=== PATIENT | female | born 2000 | race Caucasian/White ===

== ENCOUNTER → 2022-09-02 | Outpatient (CLI) | payer OTHER, SELFPAY ==
[2022-09-02 16:27] LABS: Absolute Lymphocyte Count 2.34 X10^3/uL (0.83-4.51); Absolute Neutrophil Count 10.2 X10^3/uL (2.0-7.7); Basophil# 0.03 X10^3/uL; Basophil% 0.2 % (0-1); Eosinophil# 0.17 X10^3/uL; Eosinophils% 1.3 % (0-5); Hematocrit 34.1 % (37-47); Hemoglobin 11.7 g/dL (12.0-15.0); Lymphocyte # 2.34 X10^3/ul (0.83-4.51); Lymphocyte % 17.5 % (19-41); Mean Corp Hgb Conc 34.3 g/dL (32-36); Mean Corpuscular Hgb 29.3 pg (27.0-32.0); Mean Corpuscular Volume 85.5 fL (81-99); Mean Platelet Vol. 9.9 fl (6.2-12.0); Monocyte% 4.5 % (0-10); NRBC Flagged by Analyzer 0 % (0-5); Neutrophil % 76.1 % (47-70); Platelet Count 278 K/mm3 (150-450); RBC Distribution Width CV 13.3 % (11.6-14.6); RBC Distribution Width SD 40.7 fl (35.1-43.9); Red Blood Count 3.99 M/mm3 (4.2-5.4); White Blood Count 13.4 K/mm3 (4.4-11.0)
[2022-09-02 16:45] LABS: Protein, Urine (Random) 20.2 mg/dL (<11.9); Protein:Creat Ratio 107 mg/g CRE (0-200)
[2022-09-02 17:03] LABS: ALB/GLOB Ratio 0.8 RATIO (0.9-2.4); AST(SGOT) 27 U/L (15-37); Alanine Aminotransfer ALT/SGPT 53 U/L (13-56); Alkaline Phosphatase 85 U/L (45-117); Anion Gap 8 (5-15); BUN 6 mg/dL (7-18); BUN/Creat Ratio 14.4 RATIO (10-20); Calcium,Total 9.1 mg/dL (8.5-10.1); Chloride 107 mmol/L (98-107); Creatinine, Serum 0.42 mg/dL (0.55-1.02); EST Glomerular Filtration Rate 203 mL/min (>60); Est Glom Filt Rate - Afr Amer 245 mL/min (>60); Glucose 71 mg/dL (74-106); LDH 151 U/L (84-246); Potassium 3.3 mmol/L (3.5-5.1); Sodium Level 137 mmol/L (136-145)
[2022-09-03 08:48] LABS: HIV - WCH Non-Reactive (Nonreactive); Hepatitis B Surface Antigen Non-Reactive (Nonreactive); Hepatitis C Antibody Non-Reactive (Nonreactive); Rubella IgG Reactive (Nonreactive); Syphilis Antibodies Non-reactive
[2022-09-04 18:59] LABS: V-Zoster IgG (Immunity) 145 index (Immune >165)
== END | disposition home or self-care (01) ==
LOC: WOBLAB 16:01
PROVIDERS: Visit Provider Obstetrics & Gynecology
DX: O13.3 Gestational [pregnancy-induced] hypertension without significant proteinuria, third trimester (principal); Z3A.00 Weeks of gestation of pregnancy not specified
CPT/HCPCS: 36415; 80053; 82570; 83615; 84156; 85025; 86703; 86762; 86780; 86787; 86803; 87086; 87088; 87340

== ENCOUNTER 2022-10-12 13:35 | Outpatient (CLI) | payer OTHER, SELFPAY ==
[2022-10-12 13:48] VITALS: BMI 52.6
[2022-10-12 14:43] LABS: ROM Internal Control Test YES-OK TO RESULT pt. (Internal QC); ROM Patient Test Negative (Negative)
--- NOTE | 2022-10-12 18:42 | OB.TRI.NOTE ---
HPI - General General Date of Service: 10/12/22 HPI Narrative MILAGROS PADRON, is a 22 F who presents with leakage of fluid PFSH PFSH Home Medications ascorbic acid (vitamin C) 250 mg chewable tablet (Vitamin C) 250 mg PO BID 10/12/22 [History Last Taken 10/11/22 21:00] vits no.24-iron 30 mg-folic acid 975 mcg-dha 300 mg oral pack See Rx Instructions .Route .COMPLEX 10/12/22 [History Last Taken 10/11/22 10:00] Allergy/AdvReac Type Severity Reaction Status Date / Time No Known Allergies Allergy Verified 10/12/22 13:59 Assessment & Plan (1) : PLAN: Patient arrived with leakage of fluid. ROM negative. Heart tones reassuring. Okay to discharge home
== END 2022-10-12 14:59 | disposition home or self-care (01) ==
LOC: WPOUT 13:41 → WP 13:41
PROVIDERS: Visit Provider Obstetrics & Gynecology
DX: O26.899 Other specified pregnancy related conditions, unspecified trimester (principal); R32 Unspecified urinary incontinence; Z3A.00 Weeks of gestation of pregnancy not specified
CPT/HCPCS: 84112; 99218; G0378

== ENCOUNTER 2022-10-22 13:00 | Outpatient (CLI) | payer OTHER, SELFPAY ==
[2022-10-22 13:13] VITALS: BMI 52.9
[2022-10-22 13:14] VITALS: PULSE 95; O2SAT 96
[2022-10-22 13:21] VITALS: BP 132/73; PULSE 93
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
== END 2022-10-22 17:54 | disposition home or self-care (01) ==
LOC: WPOUT 13:08 → WP 13:09
PROVIDERS: Referring Provider Student in an Organized Health Care Education/Training Program; Visit Provider Student in an Organized Health Care Education/Training Program
DX: O30.002 Twin pregnancy, unspecified number of placenta and unspecified number of amniotic sacs, second trimester (principal); Z3A.23 23 weeks gestation of pregnancy; W00.9XXA Unspecified fall due to ice and snow, initial encounter
CPT/HCPCS: 59050; 76815; 99218; G0378

== ENCOUNTER → 2022-10-24 | Outpatient (CLI) | payer OTHER, SELFPAY ==
[2022-10-24 16:19] LABS: Absolute Lymphocyte Count 2.64 X10^3/uL (0.83-4.51); Absolute Neutrophil Count 8.9 X10^3/uL (2.0-7.7); Basophil# 0.04 X10^3/uL; Basophil% 0.3 % (0-1); Eosinophil# 0.24 X10^3/uL; Eosinophils% 1.9 % (0-5); Hematocrit 32.7 % (37-47); Hemoglobin 10.9 g/dL (12.0-15.0); Lymphocyte # 2.64 X10^3/ul (0.83-4.51); Mean Corp Hgb Conc 33.3 g/dL (32-36); Mean Corpuscular Hgb 29.5 pg (27.0-32.0); Mean Corpuscular Volume 88.4 fL (81-99); Mean Platelet Vol. 9.8 fl (6.2-12.0); Monocyte# 0.67 X10^3/uL; Monocyte% 5.3 % (0-10); NRBC Flagged by Analyzer 0 % (0-5); Neutrophil # 8.87 X10^3/uL (2.7-7.7); Neutrophil % 70.5 % (47-70); Platelet Count 333 K/mm3 (150-450); RBC Distribution Width CV 13.7 % (11.6-14.6); RBC Distribution Width SD 43.3 fl (35.1-43.9); White Blood Count 12.6 K/mm3 (4.4-11.0)
[2022-10-24 16:36] LABS: Glucose Challenge Gest 1H 50g 115 mg/dL (70-140)
== END | disposition home or self-care (01) ==
PROVIDERS: Visit Provider Obstetrics & Gynecology
DX: Z34.82 Encounter for supervision of other normal pregnancy, second trimester (principal)
CPT/HCPCS: 36415; 82950; 85025

== ENCOUNTER → 2022-11-06 | Outpatient (CLI) | payer OTHER, SELFPAY ==
[2022-11-07 22:00] LABS: CMV Antibody IgG < 0.60 U/mL (0.00-0.59); Toxoplasma Gondii IgG 24.9 IU/mL (0.0-7.1); Toxoplasma Gondii IgM < 3.0 AU/mL (0.0-7.9)
== END | disposition home or self-care (01) ==
LOC: WOBLAB 10:48
PROVIDERS: Visit Provider Obstetrics & Gynecology
DX: O30.042 Twin pregnancy, dichorionic/diamniotic, second trimester (principal)
CPT/HCPCS: 36415; 86644; 86777; 86778